=== PATIENT | female | born 1955 | race Caucasian/White ===

== ENCOUNTER 2024-02-02 14:40 | Observation (INO) | payer MEDICARE, OTHER, SELFPAY ==
[2024-02-02] VITALS (7 sets, daily range): BP systolic 124–154; BP diastolic 67–102; PULSE 103–113; RESP 13–23; TEMP 37–37.3; O2SAT 91–95; BMI 37.4; BMI 37.5
--- NOTE | 2024-02-02 15:07 | EXP.UTC ---
Discharge Plan Disposition Patient Disposition: Still a Patient Prescriptions Prescriptions: No Action ropinirole 2 mg tablet 2 mg PO HS Patient Comments: TAKE 1 TABLET BY MOUTH EVERYDAY AT BEDTIME levothyroxine 150 mcg tablet 150 mcg PO AM Patient Comments: TAKE 1 TABLET BY MOUTH EVERY DAY IN THE MORNING ON EMPTY STOMACH omeprazole 20 mg capsule,delayed release(DR/EC) 20 mg PO DAILY Patient Comments: TAKE 1 CAPSULE BY MOUTH EVERY DAY lisinopril-hydrochlorothiazide 20-25 mg tablet 1 tab PO BID Patient Comments: TAKE 1 TABLET TWICE A DAY BY ORAL ROUTE FOR 90 DAYS. rosuvastatin 10 mg tablet 10 mg PO HS Patient Comments: TAKE 1 TABLET BY MOUTH EVERYDAY AT BEDTIME Referrals Follow up/Referrals: Nino Kearns APRN [Primary Care Provider] - See instructions Instructions Patient Instructions: DI for Acute Abdominal Pain Discharge [place] Emir Dykes [facility] [place] <Chelle Villalobos APRN - Last Filed: 02/02/24 17:14> General Chief complaint: Abdominal Pain Stated complaint: lower abd pain Mode of Arrival: Ambulatory Source of Information: Patient Limitations: No Limitations Time Seen by Provider: 02/02/24 15:08 Description of Symptoms (Recalled from Triage Doc. by RN): PATIENT C/O LEFT-SIDED ABDOMINAL PAIN THAT STARTED EARLIER TODAY AND HAS PROGRESSIVELY GOTTEN WORSE. PATIENT STATES PAIN DOES NOT RADIATE, DENIES NAUSEA, VOMITING AND DIARRHEA. PATIENT REPORTS A HISTORY OF PANCREATITIS AND LEUKEMIA HEENT Symptoms (Recalled from RN notes): No Resp Symptoms (Recalled from RN notes): No Skin Symptoms (Recalled from RN notes): No MS Symptoms (Recalled from RN notes): No Functional Status (Recalled from RN notes): WNL History of Present Illness Provider Complaint: Patient states that earlier today she started with left side abdominal pain that has got worse States pain is worst she has ever had States that she has had pain in her left side before and it went away but this time it has got worse States she has hx of pancreatitis and recent dx of Leukemia that they recommended she take Chemo for but she refused treatment States this evening the pain has become unbearable so she came in to get checked Denies N/V/D denies, denies radiation of pain and denies recent fever States last BM this am and normal Related Data Home Medications Medication Instructions Recorded Confirmed levothyroxine 150 mcg tablet 150 mcg PO AM 02/02/24 02/02/24 lisinopril 20 1 tab PO BID 02/02/24 02/02/24 mg-hydrochlorothiazide 25 mg tablet omeprazole 20 mg capsule,delayed 20 mg PO DAILY 02/02/24 02/02/24 release ropinirole 2 mg tablet 2 mg PO HS 02/02/24 02/02/24 rosuvastatin 10 mg tablet 10 mg PO HS 02/02/24 02/02/24 Allergies Allergy/AdvReac Type Severity Reaction Status Date / Time No Known Allergies Allergy Verified 02/02/24 15:07 Worker's Comp Is this a Worker's Comp case?: No PFSH <Chelle Villalobos APRN - Last Filed: 02/02/24 17:14> PFSH Disclaimer: The information contained in this section may have been updated after the patient was seen, as this information can be updated by other users. Medical History (Updated 02/02/24 @ 15:08 by Asiya Becker RN) Leukemia Pancreatitis Social History Smoking Status: Former smoker alcohol intake: never current occupational status: other Travel in the last 8 weeks: None <Chelle Villalobos APRN - Last Filed: 02/02/24 17:14> ROS Obtained: Yes All systems reviewed & no additional complaints except as documented and Yes Systems reviewed as appropriate & no additional complaints except as documented Constitutional Constitutional: Reports system reviewed and no additional complaints, except as documented and Reports as per HPI Cardiovascular Cardiovascular: Reports system reviewed and no additional complaints, except as documented, Reports as per HPI and Denies chest pain Respiratory Respiratory: Reports system reviewed and no additional complaints, except as documented and Reports as per HPI Gastrointestinal Gastrointestingal: Reports system reviewed and no additional complaints, except as documented, as per HPI and abdominal pain (left side pain ) Physical Exam <Chelle Villalobos APRN - Last Filed: 02/02/24 17:14> General General appearance: alert Comment: Patient uncomfortable moaning and moving around in wheelchair Respiratory Respiratory exam: Present normal lung sounds bilaterally; Absent respiratory distress or wheezes Cardiovascular Cardiovascular exam: Present tachycardia Abdominal Exam Abdominal exam: Present tenderness (patient reports pain/tenderness in left side and left upper abdomen just under breast area) and normal bowel sounds Neurological Exam Neurological exam: Present alert and oriented X3 Medical Decision Making <Chelle Villalobos APRN - Last Filed: 02/02/24 17:14> [place] Inquiry Pt receiving controlled substance: No [place] was queried for this patient: No Vital Signs: 02/02/24 15:00 Temperature 98.6 F Temperature Source Oral Pulse Rate [Right Brachial] 113 H Respiratory Rate 23 Blood Pressure [Right Arm] 154/67 H Blood Pressure Mean [Right Arm] 96 Blood Pressure Source [Right Arm] Automatic Cuff Blood Pressure Position [Right Arm] Sitting 02 Sat by Pulse Oximetry 95 Oxygen Delivery Method Room Air Lab Data 02/02/24 15:21 02/02/24 15:21 Medical Decision Narrative: Patient uncomfortable moving around in wheelchair and moaning holding left side of abdomen complaining of pain Patient reports hx of pancreatitis and recent dx of Leukemia in which she has declined treatment for, Discussed transfer to the ED for furhter work up and evaluation and patient agreed Called ED and patient was moved to room 10 <Emir Dykes MD - Last Filed: 02/02/24 16:38> Vital Signs: 02/02/24 15:00 Temperature 98.6 F Temperature Source Oral Pulse Rate [Right Brachial] 113 H Respiratory Rate 23 Blood Pressure [Right Arm] 154/67 H Blood Pressure Mean [Right Arm] 96 Blood Pressure Source [Right Arm] Automatic Cuff Blood Pressure Position [Right Arm] Sitting 02 Sat by Pulse Oximetry 95 Oxygen Delivery Method Room Air ECG Data Tracing #1: Independently interpreted by me, rate is 108, rhythm is regular, axis is normal, no ST elevation in anatomical contiguous leads. QTc 399.
--- NOTE | 2024-02-02 15:11 | PC.NURSE ---
Pt brought over from [facility]
--- NOTE | 2024-02-02 15:12 | PC.NURSE ---
PATIENT SENT TO ER PER Laury WILLIS APRN FOR FURTHER EVALUATION. REPORT GIVEN TO DR. HILLMAN BY Laury WILLIS APRN AND Sy VELAZQUEZ RN BY Hailey BLACKBURN RN. PATIENT TRANSPORTED TO ER VIA WHEELCHAIR WITH [facility] STAFF ASSIST
--- NOTE | 2024-02-02 15:13 | HMH.EDGENADL ---
Discharge Plan Disposition Patient Disposition: Admitted Condition: Serious Clinical Impressions Clinical Impression: Prolymphocytic leukemia of T-cell, Acute hypoxemic respiratory failure Discharge ED Provider: Emir Dykes General Adult HPI <JEAN MARIE Lane - Last Filed: 02/02/24 21:31> General Chief complaint: Abdominal Pain Stated complaint: lower abd pain Time Seen by Provider: 02/02/24 15:08 Mode of Arrival: Ambulatory Source of Information: Patient Limitations: No Limitations Description of Symptoms (Recalled from ER Triage Doc. by RN): PATIENT C/O LEFT-SIDED ABDOMINAL PAIN THAT STARTED EARLIER TODAY AND HAS PROGRESSIVELY GOTTEN WORSE. PATIENT STATES PAIN DOES NOT RADIATE, DENIES NAUSEA, VOMITING AND DIARRHEA. PATIENT REPORTS A HISTORY OF PANCREATITIS AND LEUKEMIA History of Present Illness HPI narrative: Patient is here for evaluation of acute onset left upper quadrant abdominal pain. Patient reports around noon today that she began experiencing exquisite left upper quadrant abdominal pain. She denies any nausea vomiting diarrhea chest pain reports shortness of breath due to the pain but no difficulty breathing fever chills hemoptysis hematochezia melena hematemesis nausea vomiting or diarrhea. Patient was diagnosed with T-cell PLL in March of last year and was sent to see oncology in [place]. Patient declined any treatment. But she also is not currently on hospice. Related Data Home Medications Medication Instructions Recorded Confirmed levothyroxine 150 mcg tablet 150 mcg PO AM 02/02/24 02/02/24 lisinopril 20 1 tab PO BID 02/02/24 02/02/24 mg-hydrochlorothiazide 25 mg tablet omeprazole 20 mg capsule,delayed 20 mg PO DAILY 02/02/24 02/02/24 release ropinirole 2 mg tablet 1 mg PO HS 02/02/24 02/02/24 rosuvastatin 10 mg tablet 10 mg PO HS 02/02/24 02/02/24 Allergies Allergy/AdvReac Type Severity Reaction Status Date / Time No Known Allergies Allergy Verified 02/02/24 15:07 PFSH <JEAN MARIE Lane - Last Filed: 02/02/24 21:31> [facility] Disclaimer: The information contained in this section may have been updated after the patient was seen, as this information can be updated by other users. Medical History Leukemia Pancreatitis Social History (Updated 02/02/24 @ 22:55 by Lourdes Smallwood RN) Smoking Status: Former smoker alcohol intake: never current occupational status: other Travel in the last 8 weeks: None <JEAN MARIE Lane - Last Filed: 02/02/24 21:31> ROS Obtained: Yes Systems reviewed as appropriate & no additional complaints except as documented Physical Exam <JEAN MARIE Lane - Last Filed: 02/02/24 21:31> General General appearance: alert and in no apparent distress Head Head exam: atraumatic and normal inspection Eye Eye exam: Present normal appearance ENT ENT exam: Present normal exam and normal oropharynx Neck Neck exam: Present normal inspection and full ROM Chest Chest inspection: Present normal inspection and symmetric chest wall rise Respiratory Respiratory exam: Present normal lung sounds bilaterally Cardiovascular Cardiovascular exam: Present normal rhythm, tachycardia, normal heart sounds, +S1 and +S2 Abdominal Exam Abdominal exam: Present soft (Obese), tenderness and normal bowel sounds; Absent guarding or rebound Abdominal tenderness: Present LUQ Extremities Exam Extremities exam: Present normal inspection and full ROM Back Exam Back exam: Present normal inspection and full ROM Neurological Exam Neurological exam: Present alert and oriented X3 Psychiatric Psychiatric exam: Present normal affect and normal mood Skin Skin exam: Present warm, dry and normal color Lymphatic Lymphatic Findings: no adenopathy Medical Decision Making <JEAN MARIE Lane - Last Filed: 02/02/24 21:31> Medical Records Medical records reviewed: Yes I reviewed the patient's medical records. [place] Inquiry Pt receiving controlled substance: No Vital Signs: 02/02/24 15:00 02/02/24 15:13 02/02/24 15:30 Temperature 98.6 F 99.0 F Temperature Source Oral Oral Pulse Rate 111 H Pulse Rate [Right Brachial] 113 H 111 H Respiratory Rate 23 13 Blood Pressure 154/102 H Blood Pressure [Right Arm] 154/67 H 150/96 H Blood Pressure Mean [Right Arm] 96 114 Blood Pressure Source [Right Arm] Automatic Cuff Blood Pressure Position [Right Arm] Sitting 02 Sat by Pulse Oximetry 95 93 L 95 Oxygen Delivery Method Room Air Room Air Room Air Oxygen Flow Rate (LPM) 02/02/24 16:29 02/02/24 17:00 02/02/24 22:03 Temperature 99.1 F Temperature Source Oral Pulse Rate 105 H 103 H 107 H Pulse Rate [Right Brachial] Respiratory Rate 17 Blood Pressure 153/81 H 144/83 H 143/95 H Blood Pressure [Right Arm] Blood Pressure Mean [Right Arm] Blood Pressure Source [Right Arm] Blood Pressure Position [Right Arm] 02 Sat by Pulse Oximetry 91 L 92 L Oxygen Delivery Method Room Air Nasal Cannula Oxygen Flow Rate (LPM) 3 Lab Data Lab results reviewed: Yes I reviewed the patient's lab results. Lab Results 02/02/24 15:21: WBC 444.4 H*, RBC 2.92 L, Hgb 9.6 L, Hct 31.5 L, MCV 108.2 H, MCH 32.8 H, MCHC 30.3 L, RDW 19.2 H, Plt Count 97 L, MPV 8.6, Neut % (Auto) 5.4 L, Lymph % (Auto) 92.5 H, Starr % (Auto) 2.1, Eos % (Auto) 0.0 L, Baso % (Auto) 29.1 H, Neut # (Auto) 23.9 H, Lymph # (Auto) 411.3 H, Starr # (Auto) 9.1 H, Eos # (Auto) 0.1, Baso # (Auto) 129.3 H, Total Counted 100, Neutrophils % (Manual) 4 L, Band Neutrophils % 1.0, Lymphocytes % (Manual) 74 H, Atypical Lymphs % 14.0, Monocytes % (Manual) 1 L, Basophils % (Manual) 1.0, Blast Cells % 5.0, Differential Comment Comment, Platelet Estimate Moderate decrease, Hypochromasia 1+, Macrocytosis 2+, PT 11.7, INR 1.09, Sodium 139, Potassium 4.2, Chloride 103, Carbon Dioxide 28, Anion Gap 12.2, BUN 13, Creatinine 1.10 H, Estimated Creat Clear 80, Estimated GFR 50 L, Est GFR ( Amer) 60, Glucose 108 H, Lactate 1.0, Uric Acid 8.8 H, Calcium 9.3, Magnesium 1.8, Total Bilirubin 1.1, AST 80 H, ALT 28, Alkaline Phosphatase 142 H, Lactate Dehydrogenase 2519 H, Total Protein 8.0, Albumin 4.6, Globulin 3.4 H, Albumin/Globulin Ratio 1.4, Lipase 155 02/02/24 18:19: Urine Color Yellow, Urine Appearance Clear, Urine pH 5.0, Ur Specific [place] 1.020, Urine Protein Trace, Urine Glucose (UA) Negative, Urine Ketones Negative, Urine Blood 1+, Urine Nitrate Negative, Urine Bilirubin Negative, Urine Urobilinogen 0.2, Ur Leukocyte Esterase Negative, Urine RBC 5-10, Urine WBC Occasional, Ur Squamous Epith Cells 3-5, Urine Bacteria None 02/02/24 15:21 02/02/24 15:21 Orders (Tests/Meds): ED MEDICATIONS Generic Name Dose Route Start Last Admin Trade Name Freq PRN Reason Stop Dose Admin Hydrocodone Bitart/Acetaminophen 1 tab 02/02/24 22:17 Hydrocodone/Apap 5/325 Mg Tablet PO 03/03/24 22:16 Q4HP PRN pain Hydromorphone HCl 0.5 mg 02/02/24 22:17 Hydromorphone 2mg/Ml Syringe IV 03/03/24 22:16 Q2HP PRN Severe Pain (7-10) Lactated Ringer's 1,000 mls @ 100 mls/hr 02/02/24 22:30 02/02/24 22:42 Lactated Ringer's 1000 Ml Bag IV 03/03/24 22:29 100 mls/hr .Q10H ALLISON Administration Prochlorperazine Edisylate 5 mg 02/02/24 22:17 02/02/24 22:42 Prochlorperazine 10mg/2ml Vial IV 03/03/24 22:16 5 mg Q4HP PRN Administration Nausea And Vomiting Sodium Chloride 10 ml 02/02/24 22:19 Sodium Chloride 0.9% 10ml Flush Syringe IV 03/03/24 22:18 NEEDED PRN Maintain IV Site Discontinued Medications Generic Name Dose Route Start Last Admin Trade Name Freq PRN Reason Stop Dose Admin Acetaminophen 1,000 mg 02/02/24 15:28 02/02/24 15:52 Acetaminophen 1,000mg/100ml Vial IV 02/02/24 15:29 1,000 mg ONCE ONE Administration Hydromorphone HCl 0.5 mg 02/02/24 15:28 02/02/24 15:52 Hydromorphone 2mg/Ml Syringe IV 02/02/24 15:29 0.5 mg ONCE ONE Administration Hydromorphone HCl 0.5 mg 05/12/24 20:55 02/02/24 21:03 Hydromorphone 2mg/Ml Syringe IV 02/02/24 20:56 0.5 mg ONCE ONE Administration Lactated Ringer's 1,000 mls @ 999 mls/hr 02/02/24 15:28 02/02/24 15:52 Lactated Ringer's 1000 Ml Bag IV 02/02/24 16:28 999 mls/hr .Q1H1M ONE Administration Lactated Ringer's 1,000 mls @ 999 mls/hr 02/02/24 17:10 02/02/24 17:16 Lactated Ringer's 1000 Ml Bag IV 02/02/24 18:10 999 mls/hr .Q1H1M ONE Administration Lactated Ringer's 1,000 mls @ 999 mls/hr 02/02/24 18:17 02/02/24 18:22 Lactated Ringer's 1000 Ml Bag IV 02/02/24 19:17 999 mls/hr .Q1H1M ONE Administration Iopamidol 70 ml 02/02/24 16:12 02/02/24 16:14 Iopamidol-370 (76%);100ml Bottle IV 02/02/24 16:13 70 ml ONCE ONE Administration Ketorolac Tromethamine 15 mg 02/02/24 15:28 02/02/24 15:52 Ketorolac 30mg/Ml Vial IV 02/02/24 15:29 15 mg ONCE ONE Administration Ondansetron HCl 4 mg 02/02/24 16:29 02/02/24 16:35 Ondansetron 4mg/2ml Vial IV 02/02/24 16:30 4 mg ONCE ONE Administration Oxycodone HCl 5 mg 02/02/24 19:12 02/02/24 19:13 Oxycodone 5mg Immediate Release Tablet PO 02/02/24 19:13 5 mg ONCE ONE Administration Promethazine HCl 25 mg 02/02/24 18:37 02/02/24 18:54 Promethazine Hcl 25mg/Ml 1ml Vial IV 02/02/24 18:38 25 mg ONCE ONE Administration Ropinirole HCl 2 mg 02/02/24 18:56 02/02/24 19:13 Ropinirole 1mg Tablet PO 02/02/24 18:57 2 mg ONCE ONE Administration Sodium Chloride 10 ml 02/02/24 16:12 02/02/24 16:14 Sodium Chloride 0.9% 10ml Syr (Rad Only) IV 02/02/24 16:13 10 ml ONCE ONE Administration Sodium Chloride 50 ml 02/02/24 16:12 02/02/24 16:14 0.9 % Sodium Chloride 50 Ml Vial IV 02/02/24 16:13 50 ml ONCE ONE Administration Sodium Chloride 25 ml 02/02/24 18:37 02/02/24 18:49 Sodium Chloride 0.9% 25ml Bag IV 02/02/24 18:38 25 ml ONCE ONE Administration ORDERS Category Date Time Status CT angio abdomen pelvis Stat Cat Scan 02/02/24 15:[address] angio chest PE protocol Stat Cat Scan 02/02/24 15:41 Completed CBC w/Auto Diff [Complete Blood Count Auto Diff] Stat Lab 02/02/24 15:21 Completed CMP [Comprehensive Metabolic Panel] Stat Lab 02/02/24 15:21 Completed INR [Prothrombin Time INR] Stat Lab 02/02/24 15:21 Completed LDH [Lactate Dehydrogenase] Stat Lab 02/02/24 15:21 Completed Lactic Acid Stat Lab 02/02/24 15:21 Completed Lipase Stat Lab 02/02/24 15:21 Completed Magnesium Stat Lab 02/02/24 15:21 Completed UA [Urinalysis and Microscopic] Stat Lab 02/02/24 18:19 Completed Uric Acid Stat Lab 02/02/24 15:21 Completed Medical Decision Narrative: In summary patient is a 68-year-old female who presents to the emergency department for evaluation of acute onset left upper quadrant abdominal pain. Patient is normotensive tachycardic but otherwise hemodynamically stable upon arrival, afebrile. Physical exam is remarkable for tenderness to palpation in the left upper quadrant extending around into the left axilla. Breath sounds are equal bilaterally without adventitious sounds. Bowel sounds are normal active.. Differential diagnosis includes splenic congestion versus kidney stone versus pyelonephritis versus pancreatitis versus bowel obstruction versus worsening T-cell PLL etc. Initial workup will be conducted with hematologic labs CT scan of the chest abdomen pelvis urinalysis twelve-lead EKG. Initial interventions include crystalloid bolus Toradol Tylenol and Dilaudid. Initial workup reviewed by me shows as expected significant leukocytosis with a white count of 444.4 hemoglobin of 9.6 hematocrit of 31.5 and mild thrombocytopenia, LDH of 2519 and a lipase of 155. My informal interpretation of her CT scan of the chest abdomen pelvis shows significant lymphadenopathy in the chest and abdomen along with significant splenomegaly with fluid noted and the left paracolic gutter around the spleen and anasarca without evidence of any other acute pathology.. Upon repeat evaluation we were able to alleviate some of the patient's discomfort. Given this Dr. Dykes had a 30-minute interactive discussion with the patient and her family members at the bedside regarding the results and possible options. She has elected to pursue hospice care. We have subsequently reached out to [facility] navigators at 1838. However patient has now developed a new oxygen requirement and thus we have contacted hospital medicine regarding patient management. Patient will be admitted for further coordination of care. <Emir Dykes MD - Last Filed: 02/02/24 23:48> Vital Signs: 02/02/24 15:00 02/02/24 15:13 02/02/24 15:30 Temperature 98.6 F 99.0 F Temperature Source Oral Oral Pulse Rate 111 H Pulse Rate [Right Brachial] 113 H 111 H Respiratory Rate 23 13 Blood Pressure 154/102 H Blood Pressure [Right Arm] 154/67 H 150/96 H Blood Pressure Mean [Right Arm] 96 114 Blood Pressure Source [Right Arm] Automatic Cuff Blood Pressure Position [Right Arm] Sitting 02 Sat by Pulse Oximetry 95 93 L 95 Oxygen Delivery Method Room Air Room Air Room Air Oxygen Flow Rate (LPM) 02/02/24 16:29 02/02/24 17:00 02/02/24 22:03 Temperature 99.1 F Temperature Source Oral Pulse Rate 105 H 103 H 107 H Pulse Rate [Right Brachial] Respiratory Rate 17 Blood Pressure 153/81 H 144/83 H 143/95 H Blood Pressure [Right Arm] Blood Pressure Mean [Right Arm] Blood Pressure Source [Right Arm] Blood Pressure Position [Right Arm] 02 Sat by Pulse Oximetry 91 L 92 L Oxygen Delivery Method Room Air Nasal Cannula Oxygen Flow Rate (LPM) 3 Lab Data Lab Results 02/02/24 15:21: WBC 444.4 H*, RBC 2.92 L, Hgb 9.6 L, Hct 31.5 L, MCV 108.2 H, MCH 32.8 H, MCHC 30.3 L, RDW 19.2 H, Plt Count 97 L, MPV 8.6, Neut % (Auto) 5.4 L, Lymph % (Auto) 92.5 H, Starr % (Auto) 2.1, Eos % (Auto) 0.0 L, Baso % (Auto) 29.1 H, Neut # (Auto) 23.9 H, Lymph # (Auto) 411.3 H, Starr # (Auto) 9.1 H, Eos # (Auto) 0.1, Baso # (Auto) 129.3 H, Total Counted 100, Neutrophils % (Manual) 4 L, Band Neutrophils % 1.0, Lymphocytes % (Manual) 74 H, Atypical Lymphs % 14.0, Monocytes % (Manual) 1 L, Basophils % (Manual) 1.0, Blast Cells % 5.0, Differential Comment Comment, Platelet Estimate Moderate decrease, Hypochromasia 1+, Macrocytosis 2+, PT 11.7, INR 1.09, Sodium 139, Potassium 4.2, Chloride 103, Carbon Dioxide 28, Anion Gap 12.2, BUN 13, Creatinine 1.10 H, Estimated Creat Clear 80, Estimated GFR 50 L, Est GFR ( Amer) 60, Glucose 108 H, Lactate 1.0, Uric Acid 8.8 H, Calcium 9.3, Magnesium 1.8, Total Bilirubin 1.1, AST 80 H, ALT 28, Alkaline Phosphatase 142 H, Lactate Dehydrogenase 2519 H, Total Protein 8.0, Albumin 4.6, Globulin 3.4 H, Albumin/Globulin Ratio 1.4, Lipase 155 02/02/24 18:19: Urine Color Yellow, Urine Appearance Clear, Urine pH 5.0, Ur Specific [place] 1.020, Urine Protein Trace, Urine Glucose (UA) Negative, Urine Ketones Negative, Urine Blood 1+, Urine Nitrate Negative, Urine Bilirubin Negative, Urine Urobilinogen 0.2, Ur Leukocyte Esterase Negative, Urine RBC 5-10, Urine WBC Occasional, Ur Squamous Epith Cells 3-5, Urine Bacteria None Orders (Tests/Meds): ED MEDICATIONS Generic Name Dose Route Start Last Admin Trade Name Freq PRN Reason Stop Dose Admin Hydrocodone Bitart/Acetaminophen 1 tab 02/02/24 22:17 Hydrocodone/Apap 5/325 Mg Tablet PO 03/03/24 22:16 Q4HP PRN pain Hydromorphone HCl 0.5 mg 02/02/24 22:17 Hydromorphone 2mg/Ml Syringe IV 03/03/24 22:16 Q2HP PRN Severe Pain (7-10) Lactated Ringer's 1,000 mls @ 100 mls/hr 02/02/24 22:30 02/02/24 22:42 Lactated Ringer's 1000 Ml Bag IV 03/03/24 22:29 100 mls/hr .Q10H ALLISON Administration Prochlorperazine Edisylate 5 mg 02/02/24 22:17 02/02/24 22:42 Prochlorperazine 10mg/2ml Vial IV 03/03/24 22:16 5 mg Q4HP PRN Administration Nausea And Vomiting Sodium Chloride 10 ml 02/02/24 22:19 Sodium Chloride 0.9% 10ml Flush Syringe IV 03/03/24 22:18 NEEDED PRN Maintain IV Site Discontinued Medications Generic Name Dose Route Start Last Admin Trade Name Freq PRN Reason Stop Dose Admin Acetaminophen 1,000 mg 02/02/24 15:28 02/02/24 15:52 Acetaminophen 1,000mg/100ml Vial IV 02/02/24 15:29 1,000 mg ONCE ONE Administration Hydromorphone HCl 0.5 mg 02/02/24 15:28 02/02/24 15:52 Hydromorphone 2mg/Ml Syringe IV 02/02/24 15:29 0.5 mg ONCE ONE Administration Hydromorphone HCl 0.5 mg 02/02/24 20:55 02/02/24 21:03 Hydromorphone 2mg/Ml Syringe IV 02/02/24 20:56 0.5 mg ONCE ONE Administration Lactated Ringer's 1,000 mls @ 999 mls/hr 02/02/24 15:28 02/02/24 15:52 Lactated Ringer's 1000 Ml Bag IV 02/02/24 16:28 999 mls/hr .Q1H1M ONE Administration Lactated Ringer's 1,000 mls @ 999 mls/hr 02/02/24 17:10 02/02/24 17:16 Lactated Ringer's 1000 Ml Bag IV 02/02/24 18:10 999 mls/hr .Q1H1M ONE Administration Lactated Ringer's 1,000 mls @ 999 mls/hr 02/02/24 18:17 02/02/24 18:22 Lactated Ringer's 1000 Ml Bag IV 02/02/24 19:17 999 mls/hr .Q1H1M ONE Administration Iopamidol 70 ml 02/02/24 16:12 02/02/24 16:14 Iopamidol-370 (76%);100ml Bottle IV 02/02/24 16:13 70 ml ONCE ONE Administration Ketorolac Tromethamine 15 mg 02/02/24 15:28 02/02/24 15:52 Ketorolac 30mg/Ml Vial IV 02/02/24 15:29 15 mg ONCE ONE Administration Ondansetron HCl 4 mg 02/02/24 16:29 02/02/24 16:35 Ondansetron 4mg/2ml Vial IV 02/02/24 16:30 4 mg ONCE ONE Administration Oxycodone HCl 5 mg 02/02/24 19:12 02/02/24 19:13 Oxycodone 5mg Immediate Release Tablet PO 02/02/24 19:13 5 mg ONCE ONE Administration Promethazine HCl 25 mg 02/02/24 18:37 02/02/24 18:54 Promethazine Hcl 25mg/Ml 1ml Vial IV 02/02/24 18:38 25 mg ONCE ONE Administration Ropinirole HCl 2 mg 02/02/24 18:56 02/02/24 19:13 Ropinirole 1mg Tablet PO 02/02/24 18:57 2 mg ONCE ONE Administration Sodium Chloride 10 ml 02/02/24 16:12 02/02/24 16:14 Sodium Chloride 0.9% 10ml Syr (Rad Only) IV 02/02/24 16:13 10 ml ONCE ONE Administration Sodium Chloride 50 ml 02/02/24 16:12 02/02/24 16:14 0.9 % Sodium Chloride 50 Ml Vial IV 02/02/24 16:13 50 ml ONCE ONE Administration Sodium Chloride 25 ml 02/02/24 18:37 02/02/24 18:49 Sodium Chloride 0.9% 25ml Bag IV 02/02/24 18:38 25 ml ONCE ONE Administration ORDERS Category Date Time Status CT angio abdomen pelvis Stat Cat Scan 02/02/24 15:[address] angio chest PE protocol Stat Cat Scan 02/02/24 15:41 Completed CBC w/Auto Diff [Complete Blood Count Auto Diff] Stat Lab 02/02/24 15:21 Completed CMP [Comprehensive Metabolic Panel] Stat Lab 02/02/24 15:21 Completed INR [Prothrombin Time INR] Stat Lab 02/02/24 15:21 Completed LDH [Lactate Dehydrogenase] Stat Lab 02/02/24 15:21 Completed Lactic Acid Stat Lab 02/02/24 15:21 Completed Lipase Stat Lab 02/02/24 15:21 Completed Magnesium Stat Lab 02/02/24 15:21 Completed UA [Urinalysis and Microscopic] Stat Lab 02/02/24 18:19 Completed Uric Acid Stat Lab 02/02/24 15:21 Completed Medical Decision Narrative: In summary patient is a 68-year-old female who presents to the emergency department for evaluation of acute onset left upper quadrant abdominal pain. Patient is normotensive tachycardic but otherwise hemodynamically stable upon arrival, afebrile. Physical exam is remarkable for tenderness to palpation in the left upper quadrant extending around into the left axilla. Breath sounds are equal bilaterally without adventitious sounds. Bowel sounds are normal active.. Differential diagnosis includes splenic congestion versus kidney stone versus pyelonephritis versus pancreatitis versus bowel obstruction versus worsening T-cell PLL etc. Initial workup will be conducted with hematologic labs CT scan of the chest abdomen pelvis urinalysis twelve-lead EKG. Initial interventions include crystalloid bolus Toradol Tylenol and Dilaudid. Initial workup reviewed by me shows as expected significant leukocytosis with a white count of 444.4 hemoglobin of 9.6 hematocrit of 31.5 and mild thrombocytopenia, LDH of 2519 and a lipase of 155. My informal interpretation of her CT scan of the chest abdomen pelvis shows significant lymphadenopathy in the chest and abdomen along with significant splenomegaly with fluid noted and the left paracolic gutter around the spleen and anasarca without evidence of any other acute pathology.. Upon repeat evaluation we were able to alleviate some of the patient's discomfort. Given this Dr. Dykes had a 30-minute interactive discussion with the patient and her family members at the bedside regarding the results and possible options. She has elected to pursue hospice care. We have subsequently reached out to [facility] navigators at 1838. However patient has now developed a new oxygen requirement and thus we have contacted hospital medicine regarding patient management. Patient will be admitted for further coordination of care. I was consulted by the MANUEL, and we discussed the complexity of the problems being addressed. I approved the treatment and management plan for this patient's care in the emergency department, thus performing a substantive portion of the medical decision making. Patient is a 68-year-old female with past medical history of untreated leukemia by choice who presented to the emergency department for left upper quadrant abdominal pain. Her workup was ultimately remarkable for hyperleukocytosis and splenomegaly in the setting of known malignancy. Prolonged discussion was had at bedside multiple times and patient was given 3 options, 1 of which was transitioning to hospice care with symptom control, 1 was calling to see about the utility of leukapheresis as a palliative measure, and finally transferring to tertiary care center for treatment options. Patient and family at bedside have prolonged discussion and ultimately wish to transition to hospice care at this time. [facility] navigators were contacted to evaluate the patient already and are in the process of coordinating care for her however will be unable to do that tonight from the ED therefore for symptomatic control and coordination of care the case was discussed with hospital medicine who admit the patient their service for continued evaluation at this time. Emir Dykes MD Critical Care <JEAN MARIE Lane - Last Filed: 02/02/24 21:31> Critical Care Time Critical Care Time: No
--- NOTE | 2024-02-02 15:41 | CT_ITS ---
PROCEDURE INFORMATION: Exam: CTA Abdomen and Pelvis With Contrast Exam date and time: 02/02/2024 3:55 PM Age: 68 years old Clinical indication: Abdominal pain; Generalized; Additional info: Acute abdominal pain, untreated pml TECHNIQUE: Imaging protocol: Computed tomographic angiography of the abdomen and pelvis with contrast. Exam focused on the arteries. 3D rendering (Not supervised by radiologist): MIP and/or 3D reconstructed images were created by the technologist. Radiation optimization: All CT scans at this facility use at least one of these dose optimization techniques: automated exposure control; mA and/or kV adjustment per patient size (includes targeted exams where dose is matched to clinical indication); or iterative reconstruction. Contrast material: ISOVUE 370; Contrast volume: 70 ml; Contrast route: INTRAVENOUS (IV); COMPARISON: CT ANGIO CHEST PE PROTOCOL 02/02/2024 3:55 PM FINDINGS: Aorta: No aortic aneurysm. No aortic dissection. [id number] atherosclerotic changes of the abdominal aorta and iliacs. Celiac trunk and mesenteric arteries: No occlusion or significant stenosis. Renal arteries: No occlusion or significant stenosis. Right iliac arteries: No occlusion or significant stenosis. Left iliac arteries: No occlusion or significant stenosis. Liver: No mass. Gallbladder and bile ducts: Unremarkable. No calcified stones. No ductal dilation. Pancreas: Unremarkable. No mass. No ductal dilation. Spleen: Moderate splenomegaly measuring 18.7 cm. Spleen otherwise unremarkable. Adrenal glands: Unremarkable. No mass. Kidneys and ureters: Unremarkable. No solid mass. No hydronephrosis. Stomach and bowel: Multiple diverticula in the sigmoid colon. Colon otherwise unremarkable. GI tract structures otherwise unremarkable with no evident wall thickening allowing for incomplete distention. Appendix: Appendix is normal. No evidence of appendicitis. Intraperitoneal space: Unremarkable. No free air. No significant fluid collection. Lymph nodes: Mildly to moderately enlarged gastrohepatic region nodes measuring up to 20 mm. Enlarge peripancreatic nodes around the pancreatic head and tail measuring up to 20 x 38 mm and portacaval node measuring 18 x 42 mm. Mild left para-aortic adenopathy measuring up to 12 mm extending from the upper abdomen to the bifurcation level. Urinary bladder: Unremarkable. No mass. Reproductive: Unremarkable as visualized. Bones/joints: No acute fracture. Soft tissues: Mild body wall edema compatible with anasarca. Mild Magalys splenic edema with extension of edema along the left pararenal fascia and left paracolic gutter. IMPRESSION: 1. Splenomegaly and associated lymphadenopathy consistent with history of PML. 2. Anasarca. 3. Mild perisplenic and left perirenal and paracolic edema or fluid that may be related to splenomegaly or anasarca. 4. No other definite acute abnormalities.
--- NOTE | 2024-02-02 15:41 | CT_ITS ---
PROCEDURE INFORMATION: Exam: CTA Chest With Contrast Exam date and time: 02/02/2024 3:55 PM Age: 68 years old Clinical indication: Pain; Left-sided; Additional info: Left upper quadrant abdominal pain, untreated pml TECHNIQUE: Imaging protocol: Computed tomographic angiography of the chest with contrast. Exam focused on the arteries. 3D rendering (Not supervised by radiologist): MIP and/or 3D reconstructed images were created by the technologist. Radiation optimization: All CT scans at this facility use at least one of these dose optimization techniques: automated exposure control; mA and/or kV adjustment per patient size (includes targeted exams where dose is matched to clinical indication); or iterative reconstruction. Contrast material: ISOVUE 370; Contrast volume: 70 ml; Contrast route: INTRAVENOUS (IV); COMPARISON: CT ANGIO ABDOMEN PELVIS 02/02/2024 3:55 PM FINDINGS: Pulmonary arteries: Normal. No pulmonary emboli. Aorta: Unremarkable. No aortic aneurysm. No aortic dissection. Thyroid: A 2.5 cm low-density lesion in the right lobe of the thyroid. Advise nonemergent ultrasound of thyroid. Lungs: Unremarkable. No consolidation. No masses. Pleural spaces: Unremarkable. No pneumothorax. No pleural effusion. Heart: Unremarkable. No cardiomegaly. No pericardial effusion. Lymph nodes: Mild nonspecific mediastinal lymphadenopathy including the high right paratracheal region measuring up to 11 mm and subcarinal region measuring up to 14 mm. Mildly enlarged right cardiophrenic angle lymph node measuring 11 mm. Bones/joints: Unremarkable. No acute fracture. Soft tissues: Unremarkable. IMPRESSION: 1. No evident PE. No other acute findings. 2. A 2.5 cm low-density lesion in the right lobe of the thyroid. Advise nonemergent ultrasound of thyroid. 3. Mild mediastinal lymphadenopathy may be related to patient's PML.
[2024-02-02 15:47] LABS: INR 1.09 (0.9-1.1); Lipase 155 U/L (23-300); Magnesium 1.8 mg/dl (1.6-2.3); Prothrombin Time 11.7 seconds (10.1-12.5); Uric Acid 8.8 mg/dl (2.5-6.2)
--- NOTE | 2024-02-02 15:47 | PC.NURSE ---
Dr. Dykes asked for pt to be taken to ct scan and forego waiting for labs. Radiology notified of this.
[2024-02-02 15:48] LABS: Alanine Aminotransferase 28 U/L (12-78); Albumin Level 4.6 g/dl (3.5-5.0); Albumin/Globulin Ratio 1.4 (1.1-1.8); Alkaline Phosphatase 142 U/L (38-126); Anion Gap 12.2 mEq/L (5-15); Aspartate Amino Transferase 80 U/L (14-36); Bilirubin,Total 1.1 mg/dl (0.2-1.3); Blood Urea Nitrogen 13 mg/dl (7-17); Calcium 9.3 mg/dl (8.4-10.2); Carbon Dioxide 28 mmol/L (22.0-30.0); Chloride 103 mmol/L (98-107); Creatinine Clearance Estimated 80 mL/min (50-200); Estimated Glomerular Filt Rate 50 ml/min (>60); GFR (African American) 60 ML/MIN (>60); Globulin 3.4 g/dL (1.3-3.2); Glucose 108 mg/dl (74-100); Potassium 4.2 mmoL/L (3.5-5.1); Sodium 139 mmol/L (136-145)
[2024-02-02] MEDS: HYDROMORPHONE 2MG/ML SYRINGE 0.5 MG IV ×3 (15:52→23:50)
[2024-02-02] MEDS: LACTATED RINGERS 1000ML 1,000 ML 999 ML IV ×3 (15:52→18:22)
[2024-02-02] MEDS: ACETAMINOPHEN 1,000MG/100ML VIAL 1000 MG IV (15:52)
[2024-02-02] MEDS: KETOROLAC 30MG/ML VIAL 15 MG IV (15:52)
--- NOTE | 2024-02-02 15:57 | ECG_ITS ---
APPROVED REPORT Exam: Resting ECG HR:108 bpm ECG Measurements Heart Rate 108 AXES LA 134 P 65 QRSd 82 QRS 53 QT 336 T 60 QTc 399 Conclusion SINUS TACHYCARDIA NONSPECIFIC ST & T-WAVE ABNORMALITY ABNORMAL RHYTHM ECG Electronically signed by : LAURA HILLMAN, 02/03/2024 00:14:02
[2024-02-02 15:59] LABS: Basophils # 129.3 K/mm3 (0-0.2); Basophils % 29.1 % (0.1-2.0); Eosinophils # 0.1 K/mm3 (0.0-0.4); Hematocrit 31.5 % (37.0-47.0); Hemoglobin 9.6 g/dL (12.2-16.2); Lymphocytes # 411.3 K/mm3 (0.7-4.5); Lymphocytes % 92.5 % (10-50); Mean Corpuscular HGB Conc 30.3 g/dL (31.8-35.4); Mean Corpuscular Hemoglobin 32.8 pg (27.0-31.2); Mean Corpuscular Volume 108.2 fl (81-99); Mean Platelet Volume 8.6 fl (7.4-10.4); Monocytes # 9.1 K/mm3 (0.1-1.0); Monocytes % 2.1 % (1.7-9.3); Neutrophils # 23.9 K/mm3 (1.8-7.8); Platelet Count 97 K/mm3 (142-424); Red Blood Count 2.92 M/mm3 (4.20-5.40); Red Cell Distribution Width 19.2 % (11.5-17.5)
[2024-02-02 16:02] LABS: Neutrophils % 5.4 % (37.0-80.0)
[2024-02-02 16:05] LABS: MANUAL DIFFERENTIAL MANUAL DIFFERENTIAL (MANUAL DIFF); White Blood Count 444.4 K/mm3 (4.8-10.8)
[2024-02-02 16:06] LABS: Lactate Dehydrogenase 2519 U/L (313-618)
--- NOTE | 2024-02-02 16:10 | PC.NURSE ---
Dr. Dykes at bedside
[2024-02-02] MEDS: IOPAMIDOL-370 (76%);100ML BOTTLE 70 ML IV (16:14)
[2024-02-02] MEDS: 0.9 % SODIUM CHLORIDE 50 ML VIAL IV (16:14)
[2024-02-02] MEDS: SODIUM CHLORIDE 0.9% 10ML SYR (RAD ONLY) 10 ML IV (16:14)
[2024-02-02] MEDS: ONDANSETRON 4MG/2ML VIAL 4 MG IV (16:35)
--- NOTE | 2024-02-02 16:38 | ED_ITS ---
Discharge Plan Disposition Patient Disposition: Still a Patient Prescriptions Prescriptions: No Action ropinirole 2 mg tablet 2 mg PO HS Patient Comments: TAKE 1 TABLET BY MOUTH EVERYDAY AT BEDTIME levothyroxine 150 mcg tablet 150 mcg PO AM Patient Comments: TAKE 1 TABLET BY MOUTH EVERY DAY IN THE MORNING ON EMPTY STOMACH omeprazole 20 mg capsule,delayed release(DR/EC) 20 mg PO DAILY Patient Comments: TAKE 1 CAPSULE BY MOUTH EVERY DAY lisinopril-hydrochlorothiazide 20-25 mg tablet 1 tab PO BID Patient Comments: TAKE 1 TABLET TWICE A DAY BY ORAL ROUTE FOR 90 DAYS. rosuvastatin 10 mg tablet 10 mg PO HS Patient Comments: TAKE 1 TABLET BY MOUTH EVERYDAY AT BEDTIME Referrals Follow up/Referrals: Nino Kearns APRN [Primary Care Provider] - See instructions Instructions Patient Instructions: DI for Acute Abdominal Pain Discharge ED Provider: Emir Dykes General Adult HPI General Chief complaint: Abdominal Pain Stated complaint: lower abd pain Time Seen by Provider: 02/02/24 15:08 Mode of Arrival: Ambulatory Source of Information: Patient Limitations: No Limitations Description of Symptoms (Recalled from ER Triage Doc. by RN): PATIENT C/O LEFT- SIDED ABDOMINAL PAIN THAT STARTED EARLIER TODAY AND HAS PROGRESSIVELY GOTTEN WORSE. PATIENT STATES PAIN DOES NOT RADIATE, DENIES NAUSEA, VOMITING AND DIARRHEA. 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 Onset was acute, over the last 24 hours, left upper quadrant, severe, intermittent, debilitating. She has intermittent shortness of breath. No other acute complaints at this time. Related Data Home Medications Medication Instructions Recorded Confirmed levothyroxine 150 mcg tablet 150 mcg PO AM 02/02/24 02/02/24 lisinopril 20 1 tab PO BID 02/02/24 02/02/24 mg-hydrochlorothiazide 25 mg tablet omeprazole 20 mg capsule,delayed 20 mg PO DAILY 02/02/24 02/02/24 release ropinirole 2 mg tablet 2 mg PO HS 02/02/24 02/02/24 rosuvastatin 10 mg tablet 10 mg PO HS 02/02/24 02/02/24 Allergies Allergy/AdvReac Type Severity Reaction Status Date / Time No Known Allergies Allergy Verified 02/02/24 15:07 [facility] Disclaimer: The information contained in this section may have been updated after the patient was seen, as this information can be updated by other users. Medical History (Updated 02/02/24 @ 15:08 by Asiya Becker RN) Leukemia Pancreatitis Social History Smoking Status: Former smoker ROS Obtained: Yes Systems reviewed as appropriate & no additional complaints except as documented Physical Exam General General appearance: alert and in distress Head Head exam: atraumatic and normocephalic Eye Eye exam: Present PERRL and EOMI ENT ENT exam: Present mucous membranes moist Neck Neck exam: Present normal inspection Chest Chest inspection: Present normal inspection and symmetric chest wall rise Respiratory Respiratory exam: Present normal lung sounds bilaterally; Absent respiratory distress Cardiovascular Cardiovascular exam: Present normal rhythm and tachycardia Abdominal Exam Abdominal exam: Present soft, tenderness (Diffuse, worse in left upper quadrant) and guarding Extremities Exam Extremities exam: Present normal inspection Neurological Exam Neurological exam: Present alert Psychiatric Psychiatric exam: Present normal affect Skin Skin exam: Present warm and dry Medical Decision Making Vital Signs: 02/02/24 15:00 02/02/24 15:13 02/02/24 15:30 Temperature 98.6 F 99.0 F Temperature Source Oral Oral Pulse Rate 111 H Pulse Rate [Right Brachial] 113 H 111 H Respiratory Rate 23 13 Blood Pressure 154/102 H Blood Pressure [Right Arm] 154/67 H 150/96 H Blood Pressure Mean [Right Arm] 96 114 Blood Pressure Source [Right Arm] Automatic Cuff Blood Pressure Position [Right Arm] Sitting 02 Sat by Pulse Oximetry 95 93 L 95 Oxygen Delivery Method Room Air Room Air Room Air 02/02/24 16:29 Temperature Temperature Source Pulse Rate 105 H Pulse Rate [Right Brachial] Respiratory Rate Blood Pressure 153/81 H Blood Pressure [Right Arm] Blood Pressure Mean [Right Arm] Blood Pressure Source [Right Arm] Blood Pressure Position [Right Arm] 02 Sat by Pulse Oximetry 91 L Oxygen Delivery Method Room Air Lab Data Lab Results 02/02/24 15:21: WBC 444.4 H*, RBC 2.92 L, Hgb 9.6 L, Hct 31.5 L, MCV 108.2 H, M CH 32.8 H, MCHC 30.3 L, RDW 19.2 H, Plt Count 97 L, MPV 8.6, Neut % (Auto) 5.4 L , Lymph % (Auto) 92.5 H, [place] % (Auto) 2.1, Eos % (Auto) 0.0 L, Baso % (Auto) 29.1 H, Neut # (Auto) 23.9 H, Lymph # (Auto) 411.3 H, [place] # (Auto) 9.1 H, Eos # (Auto) 0.1, Baso # (Auto) 129.3 H, PT 11.7, INR 1.09, Sodium 139, Potassium 4.2, Chloride 103, Carbon Dioxide 28, Anion Gap 12.2, BUN 13, Creatinine 1.10 H, Estimated Creat Clear 80, Estimated GFR 50 L, Est GFR ( Amer) 60, Glucose 108 H, Lactate 1.0, Uric Acid 8.8 H, Calcium 9.3, Magnesium 1.8, Total Bilirubin 1.1, AST 80 H, ALT 28, Alkaline Phosphatase 142 H, Lactate Dehydrogenase 2519 H, Total Protein 8.0, Albumin 4.6, Globulin 3.4 H, Albumin/Globulin Ratio 1.4, Lipase 155 02/02/24 15:21 02/02/24 15:21 Orders (Tests/Meds): ED MEDICATIONS Generic Name Dose Route Start Last Admin Trade Name Freq PRN Reason Stop Dose Admin Ondansetron HCl 4 mg 02/02/24 16:29 02/02/24 16:35 Ondansetron 4mg/2ml Vial IV 02/02/24 16:30 4 mg ONCE ONE Administration Discontinued Medications Generic Name Dose Route Start Last Admin Trade Name Freq PRN Reason Stop Dose Admin Acetaminophen 1,000 mg 02/02/24 15:28 02/02/24 15:52 Acetaminophen 1,000mg/100ml Vial IV 02/02/24 15:29 1,000 mg ONCE ONE Administration Hydromorphone HCl 0.5 mg 02/02/24 15:28 02/02/24 15:52 Hydromorphone 2mg/Ml Syringe IV 02/02/24 15:29 0.5 mg ONCE ONE Administration Lactated Ringer's 1,000 mls @ 999 mls/hr 02/02/24 15:28 02/02/24 15:52 Lactated Ringer's 1000 Ml Bag IV 02/02/24 16:28 999 mls/hr .Q1H1M ONE Administration Iopamidol 70 ml 02/02/24 16:12 02/02/24 16:14 Iopamidol-370 (76%);100ml Bottle IV 02/02/24 16:13 70 ml ONCE ONE Administration Ketorolac Tromethamine 15 mg 02/02/24 15:28 02/02/24 15:52 Ketorolac 30mg/Ml Vial IV 02/02/24 15:29 15 mg ONCE ONE Administration Sodium Chloride 10 ml 02/02/24 16:12 02/02/24 16:14 Sodium Chloride 0.9% 10ml Syr (Rad Only) IV 02/02/24 16:13 10 ml ONCE ONE Administration Sodium Chloride 50 ml 02/02/24 16:12 02/02/24 16:14 0.9 % Sodium Chloride 50 Ml Vial IV 02/02/24 16:13 50 ml ONCE ONE Administration ORDERS Category Date Time Status Type and Screen Stat BBK 02/02/24 16:[address] angio abdomen pelvis Stat Cat Scan 02/02/24 15:[address] angio chest PE protocol Stat Cat Scan 02/02/24 15:41 Taken CBC w/Auto Diff [Complete Blood Count Auto Diff] Stat Lab 02/02/24 15:21 Results CMP [Comprehensive Metabolic Panel] Stat Lab 02/02/24 15:21 Completed INR [Prothrombin Time INR] Stat Lab 02/02/24 15:21 Completed LDH [Lactate Dehydrogenase] Stat Lab 02/02/24 15:21 Completed Lactic Acid Stat Lab 02/02/24 15:21 Completed Lipase Stat Lab 02/02/24 15:21 Completed Magnesium Stat Lab 02/02/24 15:21 Completed UA [Urinalysis and Microscopic] Stat Lab 02/02/24 15:29 Ordered Uric Acid Stat Lab 02/02/24 15:21 Completed Medical Decision Narrative: In summary patient is a 68-year-old female with past medical history described above who presents emergency department for evaluation of left upper quadrant pain in the setting of known T-cell PLL not on therapy. Patient is hemodynamically stable and appearing in significant pain upon arrival, tachycardic. Differential diagnosis includes splenic sequestration, advanced malignancy, hyperviscosity syndrome, among others. Workup be conducted with hematologic labs, emergent CT imaging of the chest, abdomen, pelvis. Initial inventions include crystalloid bolus, Dilaudid, Toradol, Tylenol.
[2024-02-02 16:44] LABS: Lymphocytes % 74 % (10-50); Macrocytosis 2+; Monocytes % 1 % (2-9); Neutrophils % 4 % (42-76); Platelet Estimate Moderate Decrease; Total Cells Counted 100
[2024-02-02 16:45] LABS: Hypochromasia 1+
--- NOTE | 2024-02-02 17:37 | PC.NURSE ---
on phone with JOANNA
[2024-02-02 18:23] LABS: Microscopic, Urine URINE MICROSCOPIC (MICROSCOPIC)
[2024-02-02 18:25] LABS: Appearance,Urine CLEAR (Clear); Bilirubin,Urine Negative (Negative); Blood, Urine 1+ (Negative); Color,Urine YELLOW (Yellow); Glucose,Urine (UA) Negative (Negative); Ketones,Urine Negative (Negative); Leukocyte Esterase,Urine Negative (Negative); Nitrate,Urine Negative (Negative); Protein,Urine TRACE (Negative); Urobilinogen,Urine 0.2 EU/dl (0.2)
[2024-02-02 18:36] LABS: WBC,Urine Occasional #/hpf (0-3)
--- NOTE | 2024-02-02 18:42 | PC.NURSE ---
spoke with rocio at hospice who requests ED records be faxed to intake and thwy would call back
[2024-02-02] MEDS: SODIUM CHLORIDE 0.9% 25ML BAG 25 ML IV (18:49)
[2024-02-02] MEDS: PROMETHAZINE HCL 25MG/ML 1ML VIAL 25 MG IV (18:54)
[2024-02-02] MEDS: ROPINIROLE 1MG TABLET 2 MG PO (19:13)
[2024-02-02] MEDS: OXYCODONE 5MG IMMEDIATE RELEASE TABLET 5 MG PO (19:13)
--- NOTE | 2024-02-02 21:42 | PC.NURSE ---
Admissions notified for admit
--- NOTE | 2024-02-02 21:43 | PC.NURSE ---
Hospice Nurse is bedside.
--- NOTE | 2024-02-02 21:55 | PC.NURSE ---
Tried to call report, no answer.
--- NOTE | 2024-02-02 22:01 | PC.NURSE ---
In room with another patient at first call @ [phone]. After receiving help, called ER back @ [phone].
--- NOTE | 2024-02-02 22:01 | PC.NURSE ---
Report given to Med Surg nurse
--- NOTE | 2024-02-02 22:14 | PC.NURSE ---
Patient arrived to floor via stretcher from ED at 22:12.
[2024-02-02] MEDS: PROCHLORPERAZINE 10MG/2ML VIAL 5 MG IV (22:42)
[2024-02-02] MEDS: LACTATED RINGERS 1000ML 1,000 ML 100 ML IV (22:42)
--- NOTE | 2024-02-02 22:48 | P.HP_ITS ---
History of Present Illness *Admission Date: 02/02/24 *Reason for visit:: Abdominal pain *History of present illness: This is a 68-year-old female with past medical history of hypertension, bulimia, hypothyroidism with also a known diagnosis of prolymphocytic leukemia of T-cell who presents emergency department today with complaints of left upper quadrant pain. Patient has a known history of leukemia for which she was diagnosed approximately 1 year ago. At that time she decided not to seek treatment for her cancer. She comes in with increasing left upper quadrant pain. She is aware that this pain is likely related to her cancer and on presentation to the emergency department, requested hospice consult. She states that she does not want further workup for this and does want to seek evaluation for home hospice. [facility] navigators saw patient in the emergency department and completed evaluation for home hospice. She was noted to be hypoxic in the emergency room during this workup with mild tachycardia.. CTA of the chest and abdomen are completed and notable for low-density nodule of the right thyroid as well as mild mediastinal lymphadenopathy. Abdominal scan notable for splenomegaly associated with lymphadenopathy consistent with PML, perisplenic and perirenal edema or fluid related to anasarca. After [facility] navigators evaluated patient, they stated they would not be able to square away oxygen for her this evening and requested observation over night until durable medical equipment could be provided for patient. Given this, she is admitted to the hospitalist service for observation. [facility] Disclaimer: The information contained in this section may have been updated after the patient was seen, as this information can be updated by other users. Medical History Leukemia Pancreatitis Social History (Updated 02/02/24 @ 22:55 by Lourdes Smallwood RN) Smoking Status: Former smoker alcohol intake: never current occupational status: other Travel in the last 8 weeks: None Review of Systems Constitutional Constitutional: Reports as per HPI Eyes Eyes: Reports as per HPI ENT Ears, Nose, Mouth, and Throat: Reports as per HPI *Cardiovascular Cardiovascular: Reports as per HPI *Respiratory Respiratory: Reports as per HPI *Gastrointestinal Gastrointestinal: Reports as per HPI *Genitourinary Genitourinary: Reports as per HPI *Musculoskeletal Musculoskeletal: Reports as per HPI Integumentary/Breasts Skin/Breast: Reports as per HPI *Neurologic Neurologic: Reports as per HPI Psychiatric Psychiatric: Reports as per HPI Endocrine Endocrine: Reports as per HPI Hematologic/Lymphatic Hematologic/Lymphatic: Reports as per HPI Allergic/Immunologic Allergic/Immunologic: Reports as per HPI Meds Home Medications and Allergies Home Medications Medication Instructions Recorded Confirmed Type levothyroxine 150 mcg tablet 150 mcg PO AM 02/02/24 02/02/24 History lisinopril 20 1 tab PO BID 02/02/24 02/02/24 History mg-hydrochlorothiazide 25 mg tablet omeprazole 20 mg capsule,delayed 20 mg PO DAILY 02/02/24 02/02/24 History release ropinirole 2 mg tablet 1 mg PO HS 02/02/24 02/02/24 History hydrocodone 5 mg-acetaminophen 325 1 tab PO Q4HP PRN Moderate Pain 02/03/24 Rx mg tablet (4-6) 3 days #18 tabs ondansetron 4 mg disintegrating 4 mg PO Q8H PRN nausea and 02/03/24 Rx tablet vomiting 5 days #15 tabs New Prescriptions to Start Prescriptions: hydrocodone-acetaminophen Rafi Leger ondansetron Rafi Leger Allergies Allergy/AdvReac Type Severity Reaction Status Date / Time No Known Allergies Allergy Verified 02/02/24 15:07 Exam Data for Last 24 hours Vital signs and Labs for Last 24 Hours: Temp Pulse Resp BP Pulse Ox O2 Del Method O2 Flow Rate 98.6 F 110 H 17 124/80 95 Nasal Cannula 3 02/02/24 22:24 02/02/24 22:24 02/02/24 22:24 02/02/24 22:24 02/02/24 22:24 02/02/24 22:24 02/02/24 22:24 Laboratory Results - last 24 hr 02/02/24 15:21: WBC 444.4 H*, RBC 2.92 L, Hgb 9.6 L, Hct 31.5 L, MCV 108.2 H, MCH 32.8 H, MCHC 30.3 L, RDW 19.2 H, Plt Count 97 L, MPV 8.6, Neut % (Auto) 5.4 L, Lymph % (Auto) 92.5 H, [place] % (Auto) 2.1, Eos % (Auto) 0.0 L, Baso % (Auto) 29.1 H, Neut # (Auto) 23.9 H, Lymph # (Auto) 411.3 H, [place] # (Auto) 9.1 H, Eos # (Auto) 0.1, Baso # (Auto) 129.3 H, Total Counted 100, Neutrophils % (Manual) 4 L , Band Neutrophils % 1.0, Lymphocytes % (Manual) 74 H, Atypical Lymphs % 14.0, Monocytes % (Manual) 1 L, Basophils % (Manual) 1.0, Blast Cells % 5.0, Differential Comment Comment, Platelet Estimate Moderate decrease, Hypochromasia 1+, Macrocytosis 2+, PT 11.7, INR 1.09, Sodium 139, Potassium 4.2, Chloride 103, Carbon Dioxide 28, Anion Gap 12.2, BUN 13, Creatinine 1.10 H, Estimated Creat Clear 80, Estimated GFR 50 L, Est GFR ( Amer) 60, Glucose 108 H, Lactate 1.0, Uric Acid 8.8 H, Calcium 9.3, Magnesium 1.8, Total Bilirubin 1.1, AST 80 H, ALT 28, Alkaline Phosphatase 142 H, Lactate Dehydrogenase 2519 H, Total Protein 8.0, Albumin 4.6, Globulin 3.4 H, Albumin/Globulin Ratio 1.4, Lipase 155 02/02/24 18:19: Urine Color Yellow, Urine Appearance Clear, Urine pH 5.0, Ur Specific [place] 1.020, Urine Protein Trace, Urine Glucose (UA) Negative, Urine Ketones Negative, Urine Blood 1+, Urine Nitrate Negative, Urine Bilirubin Negative, Urine Urobilinogen 0.2, Ur Leukocyte Esterase Negative, Urine RBC 5- 10, Urine WBC Occasional, Ur Squamous Epith Cells 3-5, Urine Bacteria None I & O for Last 24 hours: Intake & Output 01/30/24 01/31/24 02/01/24 02/02/24 23:59 23:59 23:59 23:59 Weight 102.2 kg Constitutional Constitutional: no acute distress *Routine HEENT Exam Head: Present normocephalic Eye: Present EOMI and PERRL ENT: Present mucous membranes moist *Routine Neck Exam Neck: Present supple; Absent lymphadenopathy *Routine Respiratory Exam Respiratory: Present CTA bilaterally Comments: Hypoxia on O2 *Routine Cardiovascular Exam Cardiovascular: Present tachycardia Comments: low sinus Tachycardia *Routine Abdominal Exam Abdominal: Present soft, normoactive bowel sounds and tenderness Comments: LUQ edema noted *Routine Rectal Exam Rectal:: deferred *Routine Genitalia Exam Genitalia:: deferred *Routine Extremities Exam Extremities: Absent cyanosis, clubbing or edema *Routine Skin Exam Skin: Present warm; Absent rash *Routine Neurological Exam Neurological: Present alert and oriented X3 Assessment and Plan *Assessment and plan (1) Prolymphocytic leukemia of T-cell: Status: Acute Category: Medical Code(s): C91.60 - Prolymphocytic leukemia of T-cell type not having achieved remission (2) Hypoxia: Status: Acute Category: Medical Code(s): R09.02 - Hypoxemia (3) Hypothyroidism: Status: Acute Qualifiers: Hypothyroidism type: acquired Qualified Code(s): E03.9 - Hypothyroidism, unspecified Category: Medical Code(s): E03.9 - Hypothyroidism, unspecified (4) Thrombocytopenia: Status: Acute Category: Medical Code(s): D69.6 - Thrombocytopenia, unspecified (5) Hypertension: Status: Acute Qualifiers: Hypertension type: primary hypertension Qualified Code(s): I10 - Essential (primary) hypertension Category: Medical Code(s): I10 - Essential (primary) hypertension Plan This is a 68-year-old female with known PML with worsening left upper quadrant pain and hypoxia. Requesting hospice care. Secondary to patient's hypoxia, unable to be sent home with home hospice overnight. She is admitted for observation until further durable medical equipment can be supplied. #PML Known history with refusal of treatment. Does not wish for further workup regarding this. Requesting hospice. [facility] navigators presented to the ER for hospice plan. Given patient's hypoxia, admitted overnight and self further oxygen supplies can be gathered for home hospice. Continue multimodal pain medication Continue nausea medication #Hypoxia Likely sequela of disease. CTA without evidence of PE, no pneumonia seen on imaging. Offered COVID and flu swab but patient refused Continue supplemental oxygen #Hypothyroidism Continue home levothyroxine #Hypertension Patient reports not medications at home secondary to mildly low blood pressure. Normotensive here, will hold at this time #Thrombocytopenia Platelet count of 97,000 No obvious risks of bleeding Will hold DVT prophylaxis DNR/DNI Rounded on patient after nurse practitioner. Personally examined and interviewed patient. Agree with exam findings and care plan as documented.
--- NOTE | 2024-02-02 23:10 | PC.NURSE ---
Pt refuses respiratory swab.
[2024-02-03] VITALS: BP 142/67; PULSE 93; RESP 18; TEMP 37; O2SAT 93
[2024-02-03 04:00] VITALS: BP 125/81; PULSE 101; RESP 17; TEMP 36.6; O2SAT 96; BMI 37.5
[2024-02-03] MEDS: HYDROMORPHONE 2MG/ML SYRINGE 0.5 MG IV ×4 (04:06→14:41)
--- NOTE | 2024-02-03 05:01 | PC.NURSE ---
Pt is alert and oriented. Complains of left upper quadrant pain, treated per nov. Complained of nausea one time, treated per nov. No other complaints. Requiring 3L NC to remain >90% O2 sat. Pt ambulates to the restroom standby assist. Plan is to go home on hospice care. Call light in reach.
--- NOTE | 2024-02-03 07:24 | P.DS_ITS ---
General Admission date:: 02/02/24 Discharge date: 02/03/24 HPI HPI HPI: This is a 68-year-old female with past medical history of hypertension, bulimia, hypothyroidism with also a known diagnosis of prolymphocytic leukemia of T-cell who presents emergency department today with complaints of left upper quadrant pain. Patient has a known history of leukemia for which she was diagnosed approximately 1 year ago. At that time she decided not to seek treatment for her cancer. She comes in with increasing left upper quadrant pain. She is aware that this pain is likely related to her cancer and on presentation to the emergency department, requested hospice consult. She states that she does not want further workup for this and does want to seek evaluation for home hospice. [facility] navigators saw patient in the emergency department and completed evaluation for home hospice. She was noted to be hypoxic in the emergency room during this workup with mild tachycardia.. CTA of the chest and abdomen are completed and notable for low-density nodule of the right thyroid as well as mild mediastinal lymphadenopathy. Abdominal scan notable for splenomegaly associated with lymphadenopathy consistent with PML, perisplenic and perirenal edema or fluid related to anasarca. After [facility] care navigators evaluated patient, they stated they would not be able to square away oxygen for her this evening and requested observation overnight until durable medical equipment could be provided for patient. Given this, she is admitted to the hospitalist service for observation. Hospital Course Hospital Course Hospital Course: This is a 68-year-old female with known PML with worsening left upper quadrant pain and hypoxia. Requesting hospice care. Secondary to patient's hypoxia, unable to be sent home with home hospice overnight. She was admitted for altered patient overnight. Patient stable on 3 L nasal cannula oxygen. Will discharge home with hospice to evaluate when she arrives home. Problems addressed as follows: #PML Known history with refusal of treatment. Does not wish for further workup regarding this. Requesting hospice. [facility] care navigators presented to the ER for hospice plan. Given patient's hypoxia, admitted overnight and stabilized. Necessitating 3 L oxygen. Hospice to provide resources at home, will evaluate patient when she gets home and admitted at that time. Continued multimodal pain control during admission. Treatment for nausea continued. #Hypoxia Likely sequela of disease. CTA without evidence of PE, no pneumonia seen on imaging. Offered COVID and flu swab but patient refused. Tolerating 3 L nasal cannula oxygen to maintain saturations above 90%. Was hypoxic in the 80s at rest on room air. #Hypothyroidism: Continue home levothyroxine #Hypertension: Patient reports no medications at home secondary to mildly low blood pressure. Normotensive here, will hold at this time #Thrombocytopenia Platelet count of 97,000 No obvious risks of bleeding Patient discharged home. Hospice to meet her at home and discuss admitting to their services at that time. Exam Data for Last 24 hours Vital signs and Labs for Last 24 Hours: Temp Pulse Resp BP Pulse Ox O2 Del Method O2 Flow Rate 97.9 F 101 H 17 125/81 96 Nasal Cannula 3 02/03/24 04:00 02/03/24 04:00 02/03/24 04:00 02/03/24 04:00 02/03/24 04:00 02/03/24 06:50 02/03/24 05:00 Laboratory Results - last 24 hr 02/02/24 15:21: WBC 444.4 H*, RBC 2.92 L, Hgb 9.6 L, Hct 31.5 L, MCV 108.2 H, MCH 32.8 H, MCHC 30.3 L, RDW 19.2 H, Plt Count 97 L, MPV 8.6, Neut % (Auto) 5.4 L, Lymph % (Auto) 92.5 H, Rich % (Auto) 2.1, Eos % (Auto) 0.0 L, Baso % (Auto) 29.1 H, Neut # (Auto) 23.9 H, Lymph # (Auto) 411.3 H, Rich # (Auto) 9.1 H, Eos # (Auto) 0.1, Baso # (Auto) 129.3 H, Total Counted 100, Neutrophils % (Manual) 4 L , Band Neutrophils % 1.0, Lymphocytes % (Manual) 74 H, Atypical Lymphs % 14.0, Monocytes % (Manual) 1 L, Basophils % (Manual) 1.0, Blast Cells % 5.0, Differential Comment Comment, Platelet Estimate Moderate decrease, Hypochromasia 1+, Macrocytosis 2+, PT 11.7, INR 1.09, Sodium 139, Potassium 4.2, Chloride 103, Carbon Dioxide 28, Anion Gap 12.2, BUN 13, Creatinine 1.10 H, Estimated Creat Clear 80, Estimated GFR 50 L, Est GFR ( Amer) 60, Glucose 108 H, Lactate 1.0, Uric Acid 8.8 H, Calcium 9.3, Magnesium 1.8, Total Bilirubin 1.1, AST 80 H, ALT 28, Alkaline Phosphatase 142 H, Lactate Dehydrogenase 2519 H, Total Protein 8.0, Albumin 4.6, Globulin 3.4 H, Albumin/Globulin Ratio 1.4, Lipase 155 02/02/24 18:19: Urine Color Yellow, Urine Appearance Clear, Urine pH 5.0, Ur Specific [place] 1.020, Urine Protein Trace, Urine Glucose (UA) Negative, Urine Ketones Negative, Urine Blood 1+, Urine Nitrate Negative, Urine Bilirubin Negative, Urine Urobilinogen 0.2, Ur Leukocyte Esterase Negative, Urine RBC 5- 10, Urine WBC Occasional, Ur Squamous Epith Cells 3-5, Urine Bacteria None I & O for Last 24 hours: Intake & Output 01/31/24 02/01/24 02/02/24 02/03/24 23:59 23:59 23:59 23:59 Intake Total 595 / 595 Output Total 0 / 0 Balance 595 / 595 Weight 102.2 kg 102.2 kg Constitutional Constitutional: mild distress, obese and chronically ill appearing *Routine HEENT Exam Head: Present normocephalic Eye: Present EOMI and PERRL ENT: Present mucous membranes moist *Routine Neck Exam Neck: Present supple; Absent lymphadenopathy *Routine Respiratory Exam Respiratory: Present CTA bilaterally *Routine Cardiovascular Exam Cardiovascular: Present RRR *Routine Abdominal Exam Abdominal: Present soft and normoactive bowel sounds; Absent tenderness *Routine Rectal Exam Patient deferred: visual exam *Routine Exam Patient deferred: external exam *Routine Extremities Exam Extremities: Absent cyanosis, clubbing or edema *Routine Skin Exam Skin: Present warm; Absent rash *Routine Neurological Exam Neurological: Present alert, oriented X3 and moving all extremities; Absent altered mental status Results Data Completed and Pending Labs on day of discharge: Labs from last 24 hours 02/02/24 02/02/24 18:19 15:21 WBC 444.4 H* RBC 2.92 L Hgb 9.6 L Hct 31.5 L MCV 108.2 H MCH 32.8 H MCHC 30.3 L RDW 19.2 H Plt Count 97 L MPV 8.6 Neut % (Auto) 5.4 L Lymph % (Auto) 92.5 H Rich % (Auto) 2.1 Eos % (Auto) 0.0 L Baso % (Auto) 29.1 H Neut # (Auto) 23.9 H Lymph # (Auto) 411.3 H Rich # (Auto) 9.1 H Eos # (Auto) 0.1 Baso # (Auto) 129.3 H Total Counted 100 Neutrophils % (Manual) 4 L Band Neutrophils % 1.0 Lymphocytes % (Manual) 74 H Atypical Lymphs % 14.0 Monocytes % (Manual) 1 L Basophils % (Manual) 1.0 Blast Cells % 5.0 Differential Comment Comment Platelet Estimate Moderate decrease Hypochromasia 1+ Macrocytosis 2+ PT 11.7 INR 1.09 Sodium 139 Potassium 4.2 Chloride 103 Carbon Dioxide 28 Anion Gap 12.2 BUN 13 Creatinine 1.10 H Estimated Creat Clear 80 Estimated GFR 50 L Est GFR ( Amer) 60 Glucose 108 H Lactate 1.0 Uric Acid 8.8 H Calcium 9.3 Magnesium 1.8 Total Bilirubin 1.1 AST 80 H ALT 28 Alkaline Phosphatase 142 H Lactate Dehydrogenase 2519 H Total Protein 8.0 Albumin 4.6 Globulin 3.4 H Albumin/Globulin Ratio 1.4 Lipase 155 Urine Color Yellow Urine Appearance Clear Urine pH 5.0 Ur Specific [place] 1.020 Urine Protein Trace Urine Glucose (UA) Negative Urine Ketones Negative Urine Blood 1+ Urine Nitrate Negative Urine Bilirubin Negative Urine Urobilinogen 0.2 Ur Leukocyte Esterase Negative Urine RBC 5-10 Urine WBC Occasional Ur Squamous Epith Cells 3-5 Urine Bacteria None DS: Diagnosis Discharge Diagnosis (1) Prolymphocytic leukemia of T-cell: Status: Acute Code(s): C91.60 - Prolymphocytic leukemia of T-cell type not having achieved remission (2) Hypoxia: Status: Acute Code(s): R09.02 - Hypoxemia (3) Hypothyroidism: Status: Acute Code(s): E03.9 - Hypothyroidism, unspecified Qualifiers: Hypothyroidism type: acquired Qualified Code(s): E03.9 - Hypothyroidism, unspecified (4) Thrombocytopenia: Status: Acute Code(s): D69.6 - Thrombocytopenia, unspecified (5) Hypertension: Status: Acute Code(s): I10 - Essential (primary) hypertension Qualifiers: Hypertension type: primary hypertension Qualified Code(s): I10 - Essential (primary) hypertension Meds Home Medications and Allergies Home Medications Medication Instructions Recorded Confirmed Type levothyroxine 150 mcg tablet 150 mcg PO AM 02/02/24 02/02/24 History lisinopril 20 1 tab PO BID 02/02/24 02/02/24 History mg-hydrochlorothiazide 25 mg tablet omeprazole 20 mg capsule,delayed 20 mg PO DAILY 02/02/24 02/02/24 History release ropinirole 2 mg tablet 1 mg PO HS 02/02/24 02/02/24 History hydrocodone 5 mg-acetaminophen 325 1 tab PO Q4HP PRN Moderate Pain 02/03/24 Rx mg tablet (4-6) 3 days #18 tabs ondansetron 4 mg disintegrating 4 mg PO Q8H PRN nausea and 02/03/24 Rx tablet vomiting 5 days #15 tabs New Prescriptions to Start Prescriptions: hydrocodone-acetaminophen Rafi Leger ondansetron Rafi Leger Allergies Allergy/AdvReac Type Severity Reaction Status Date / Time No Known Allergies Allergy Verified 02/02/24 15:07 Discharge Plan Disposition Patient Disposition: Hospice - Home Condition: Undetermined Discharge Order Discharge Orders: Discharge Order (Routine); Ordered 02/03/24 Ordered By: Rafi Leger Follow up Plan Follow up with: Nino Kearns APRN [Primary Care Provider] - 02/11/24 11:00 am Prescriptions/Medication Reconciliation: New hydrocodone-acetaminophen 5-325 mg Tablet 1 tab PO Q4HP PRN (Reason: Moderate Pain (4-6)) 3 Days Qty: 18 0RF ondansetron 4 mg tablet,disintegrating 4 mg PO Q8H PRN (Reason: nausea and vomiting) 5 Days Qty: 15 0RF Continued ropinirole 2 mg tablet 1 mg PO HS Patient Comments: TAKE 1 TABLET BY MOUTH EVERYDAY AT BEDTIME levothyroxine 150 mcg tablet 150 mcg PO AM Patient Comments: TAKE 1 TABLET BY MOUTH EVERY DAY IN THE MORNING ON EMPTY STOMACH omeprazole 20 mg capsule,delayed release(DR/EC) 20 mg PO DAILY Patient Comments: TAKE 1 CAPSULE BY MOUTH EVERY DAY lisinopril-hydrochlorothiazide 20-25 mg tablet 1 tab PO BID Patient Comments: TAKE 1 TABLET TWICE A DAY BY ORAL ROUTE FOR 90 DAYS. Discontinued rosuvastatin 10 mg tablet 10 mg PO HS Patient Comments: TAKE 1 TABLET BY MOUTH EVERYDAY AT BEDTIME Problem Reconciliation Problems Reviewed?: Yes Patient Discharge Instructions ACTIVITY: Continue current activity DIET: continue same diet Patient Instructions: DI for Hypoxia Providers Primary Care Provider: Nino Kearns Admit Provider: Rafi Leger Attending Provider: Rafi Leger
[2024-02-03 07:49] VITALS: BP 126/81; PULSE 110; RESP 24; TEMP 36.6; O2SAT 95
--- NOTE | 2024-02-03 08:14 | SW/DCPLANNER ---
Addendum entered by Nifna Lucas 02/03/24 11:37: Per Ina blanton/ [facility] all home DME will be set up today by 12PM. Original Note: [facility] and the plan is to have all appropriate DME set up in home today and patient to return home w/ Hospice to admit. I have faxed all updated information to Ina blanton/ [facility].
[2024-02-03] MEDS: HYDROCODONE/APAP 5/325 MG TABLET 1 TAB PO ×2 (08:25→15:52)
== END 2024-02-03 16:25 | disposition hospice, home (50) ==
LOC: UTC 14:48 → ER 15:09 → 2ND 22:14
PROVIDERS: Physician Assistant; Admitting Provider Internal Medicine Adolescent Medicine; Emergency Provider Emergency Medicine; PCP Nurse Practitioner Family; Visit Provider Internal Medicine Adolescent Medicine
DX: C91.60 Prolymphocytic leukemia of T-cell type not having achieved remission (principal); R09.02 Hypoxemia; E03.9 Hypothyroidism, unspecified; D69.6 Thrombocytopenia, unspecified; I10 Essential (primary) hypertension; Z79.899 Other long term (current) drug therapy; Z87.891 Personal history of nicotine dependence
CPT/HCPCS: 71275; 74174; 80053; 81001; 83605; 83615; 83690; 83735; 84550; 85007; 85025; 85610; 93005; 99285; G0378; J0131; J2405; Q9967

== ENCOUNTER 2024-02-09 18:44 | Emergency (ER) | payer OTHER, SELFPAY ==
[2024-02-09 18:44] VITALS: BP 130/67; PULSE 101; RESP 24; TEMP 37; O2SAT 88; BMI 37.4
--- NOTE | 2024-02-09 18:46 | PC.NURSE ---
DR HILLMAN AT [facility]
--- NOTE | 2024-02-09 18:59 | ED_ITS ---
Discharge Plan Disposition Patient Disposition: Home, Self-Care Prescriptions Prescriptions: New sulfamethoxazole-trimethoprim [Bactrim DS] 800-160 mg tablet 1 tab PO BID 7 Days Qty: 14 0RF No Action ropinirole 2 mg tablet 1 mg PO HS Patient Comments: TAKE 1 TABLET BY MOUTH EVERYDAY AT BEDTIME levothyroxine 150 mcg tablet 150 mcg PO AM Patient Comments: TAKE 1 TABLET BY MOUTH EVERY DAY IN THE MORNING ON EMPTY STOMACH omeprazole 20 mg capsule,delayed release(DR/EC) 20 mg PO DAILY Patient Comments: TAKE 1 CAPSULE BY MOUTH EVERY DAY lisinopril-hydrochlorothiazide 20-25 mg tablet 1 tab PO BID Patient Comments: TAKE 1 TABLET TWICE A DAY BY ORAL ROUTE FOR 90 DAYS. hydrocodone-acetaminophen 5-325 mg Tablet 1 tab PO Q4HP PRN (Reason: Moderate Pain (4-6)) 3 Days Qty: 18 0RF ondansetron 4 mg tablet,disintegrating 4 mg PO Q8H PRN (Reason: nausea and vomiting) 5 Days Qty: 15 0RF Referrals Follow up/Referrals: Nino Kearns APRN [Primary Care Provider] - See instructions Activity Restrictions/Add. Instructions Additional Instructions/Restrictions: At this time it was felt appropriate to discharge you home. You likely have a blood clot in your arm, there may be superimposed infection for which we are giving you an antibiotic. We had a long talk today about your disease course and unfortunately your cancer is terminal and these blood clots will likely continue to worsen. Is very important that we keep your symptoms under control. If your pain ever becomes uncontrollable and hospice is unable to assist you any further please feel free to present to the emergency department where we can try and figure out a plan to control your symptoms. Please take antibiotics as prescribed and use hot and cold compresses on the affected arm. We did not work you up or treat anything related to your cancer today and it will not affect your hospice in any way. I am sorry that you are going through this and which we had more options but unfortunately we are at a point where keeping you comfortable is paramount. Clinical Impressions Clinical Impression: Prolymphocytic leukemia of T-cell, Cellulitis, Acute deep vein thrombosis of u pper extremity Instructions Patient Instructions: DI for Skin Abscess Discharge ED Provider: Emir Dykes General Adult HPI <JEAN MARIE Lane - Last Filed: 02/09/24 18:59> General Chief complaint: Skin/Abscess/Foreign Body Stated complaint: KNEE PAIN Time Seen by Provider: 02/09/24 18:58 Mode of Arrival: EMS Source of Information: Patient, Relative and EMS Limitations: No Limitations Description of Symptoms (Recalled from ER Triage Doc. by RN): pt was recently seen and admitted here and is back today bilateral leg pain and redness around her old iv site Related Data Home Medications Medication Instructions Recorded Confirmed levothyroxine 150 mcg tablet 150 mcg PO AM 02/02/24 02/02/24 lisinopril 20 1 tab PO BID 02/02/24 02/02/24 mg-hydrochlorothiazide 25 mg tablet omeprazole 20 mg capsule,delayed 20 mg PO DAILY 02/02/24 02/02/24 release ropinirole 2 mg tablet 1 mg PO HS 02/02/24 02/02/24 Previous Rx's Medication Instructions Recorded hydrocodone 5 mg-acetaminophen 325 1 tab PO Q4HP PRN Moderate Pain 02/03/24 mg tablet (4-6) 3 days #18 tabs ondansetron 4 mg disintegrating 4 mg PO Q8H PRN nausea and 02/03/24 tablet vomiting 5 days #15 tabs sulfamethoxazole 800 1 tab PO BID cellulitis 7 days #14 02/09/24 mg-trimethoprim 160 mg tablet tabs (Bactrim DS) Allergies Allergy/AdvReac Type Severity Reaction Status Date / Time No Known Allergies Allergy Verified 02/02/24 15:07 <Emir Dykes MD - Last Filed: 02/09/24 19:18> History of Present Illness HPI narrative: Patient is a 68-year-old female with past medical history of untreated leukemia by choice who I evaluated last week and ultimately prolonged decision-making was had and we transition to hospice who presents emergency department for e valuation of upper extremity pain and right lower extremity pain. Patient has been intermittently compliant with her fentanyl patches and oxycodone at home. Her condition is terminal and we are trying to keep her symptoms under control. Since Saturday she has had redness and pain in her left antecubital fossa and right area behind her knee. No other acute complaints at this time. [facility] <JEAN MARIE Lane - Last Filed: 02/09/24 18:59> [facility] Disclaimer: The information contained in this section may have been updated after the patient was seen, as this information can be updated by other users. Medical History Leukemia Pancreatitis Social History (Updated 02/02/24 @ 22:55 by Lourdes Smallwood RN) Smoking Status: Never smoker alcohol intake: never current occupational status: other Travel in the last 8 weeks: None <JEAN MARIE Lane - Last Filed: 02/09/24 18:59> ROS Obtained: Yes Systems reviewed as appropriate & no additional complaints except as documented Physical Exam <JEAN MARIE Lane - Last Filed: 02/09/24 18:59> General General appearance: alert and in no apparent distress Head Head exam: atraumatic and normal inspection Eye Eye exam: Present normal appearance, PERRL and EOMI ENT ENT exam: Present normal exam, normal oropharynx and mucous membranes moist Neck Neck exam: Present normal inspection, full ROM and trachea midline; Absent lymphadenopathy Chest Chest inspection: Present normal inspection and symmetric chest wall rise Respiratory Respiratory exam: Present normal lung sounds bilaterally; Absent accessory muscle use Cardiovascular Cardiovascular exam: Present regular rate, normal rhythm, normal heart sounds, +S1 and +S2 Abdominal Exam Abdominal exam: Present soft and normal bowel sounds; Absent tenderness, guarding or rebound Extremities Exam Extremities exam: Present normal inspection and full ROM Neurological Exam Neurological exam: Present alert, oriented X3 and CN II-XII intact Psychiatric Psychiatric exam: Present normal affect and normal mood Skin Skin exam: Present warm, dry and normal color Lymphatic Lymphatic Findings: no adenopathy <Emir Dykes MD - Last Filed: 02/09/24 19:18> General General appearance: alert and in no apparent distress Head Head exam: atraumatic and normocephalic Eye Eye exam: Present PERRL ENT ENT exam: Present mucous membranes moist Neck Neck exam: Present normal inspection Chest Chest inspection: Present normal inspection and symmetric chest wall rise Respiratory Respiratory exam: Absent respiratory distress Cardiovascular Cardiovascular exam: Present normal rhythm and tachycardia Abdominal Exam Abdominal exam: Present distention; Absent tenderness Extremities Exam Extremities exam: Present other (Tender swelling erythema in the left antecubital fossa that is indurated. Area of swelling in the right area behind the knee with no overlying erythema, nontender.) Neurological Exam Neurological exam: Present alert Psychiatric Psychiatric exam: Present normal affect Skin Skin exam: Present warm and dry Medical Decision Making <JEAN MARIE Lane - Last Filed: 02/09/24 18:59> Vital Signs: 02/09/24 18:44 02/09/24 19:05 Temperature 98.6 F Temperature Source Oral Pulse Rate 101 H Pulse Rate [Right Radial] 101 H Respiratory Rate 24 Blood Pressure 113/67 Blood Pressure [Right Arm] 130/67 Blood Pressure Mean [Right Arm] 88 Blood Pressure Position Sitting 02 Sat by Pulse Oximetry 88 L 95 Oxygen Delivery Method Room Air Room Air Oxygen Flow Rate (LPM) 2 Orders (Tests/Meds): ED MEDICATIONS Discontinued Medications Generic Name Dose Route Start Last Admin Trade Name Freq PRN Reason Stop Dose Admin Trimethoprim/Sulfamethoxazole 1 each 02/09/24 19:05 Sulfa/Trimethoprim 1 Tablet PO 02/09/24 19:06 ONCE ONE Medical Decision Narrative: In summary patient is a [age, sex] who presents to the emergency department for evaluation of [complaint]. Patient is [hemodynamically stable/unstable] upon arrival, [febrile/afebrile]. [Unremarkable physical exam, nonfocal exam versus focal remarkable exam]. Differential diagnosis includes [DDx]. Initial workup will be conducted with [hematologic labs, imaging, respiratory swab, describe workup]. Initial interventions include [crystalloid bolus, medications, p.o. challenge, etc.] initial workup reviewed by me [hematologic labs are remarkable for... Imaging remarkable for... Urinalysis remarkable for]. Upon repeat evaluation [patient had acceptable resolution of symptoms, had persistent pain for which additional interventions were conducted (describe interventions), tolerated p.o., was ambulatory, etc.]. Given this [patient is appropriate for discharge at this time and will be discharged with a prescription for... The case was discussed with hospital medicine regarding management and they will admit the patient their service for continued evaluation at this time... Etc.] Places where you can increase complexity: I informally interpreted the patient's chest x-ray or CT read and is remarkable for... Documenting what the alarm security or surveillance monitor shows with rate and rhythm Consideration of test but deferring. Ex: I considered chest x-ray on this patient however given that they have no oxygen requirement and are clear to auscultation all lung tong will be deferred. Social determinants of health: Given that patient is undomiciled increases complexity. Given that patient has polysubstance abuse compounds all aspects of care <Emir Dykes MD - Last Filed: 02/09/24 19:18> [place] Inquiry Pt receiving controlled substance: No Vital Signs: 02/09/24 18:44 02/09/24 19:05 Temperature 98.6 F Temperature Source Oral Pulse Rate 101 H Pulse Rate [Right Radial] 101 H Respiratory Rate 24 Blood Pressure 113/67 Blood Pressure [Right Arm] 130/67 Blood Pressure Mean [Right Arm] 88 Blood Pressure Position Sitting 02 Sat by Pulse Oximetry 88 L 95 Oxygen Delivery Method Room Air Room Air Oxygen Flow Rate (LPM) 2 Orders (Tests/Meds): ED MEDICATIONS Discontinued Medications Generic Name Dose Route Start Last Admin Trade Name Freq PRN Reason Stop Dose Admin Trimethoprim/Sulfamethoxazole 1 each 02/09/24 19:05 Sulfa/Trimethoprim 1 Tablet PO 02/09/24 19:06 ONCE ONE Medical Decision Narrative: In summary patient is a 68-year-old female with past medical history described above who presents emergency department for evaluation of left arm pain in the setting of terminal leukemia on hospice. Patient is hemodynamically stable upon arrival. [id number] ultrasound at bedside shows noncompressible brachial vein concerning for DVT. There is overlying erythema which is likely financial service representative of phlebitis however can also be cellulitis given that this is the site of her IV last week. Prolonged care decision-making discussion was had at bedside, anticoagulation will just delay the inevitability of her terminal condition, her hyperleukocytosis makes it very likely that anticoagulation will be ineffective anyways. It is paramount that we control her symptoms. Patient was talked with bedside and she will begin taking her fentanyl patches and oxycodone as they were prescribed. Given the possibility of cellulitis patient be treated with Bactrim for which the first dose will be administered here. Her disease course was discussed at bedside as all of her complications related to her malignancy including this will likely get worse prior to her expiration. Workup with labs and imaging was considered however ultimately are not indicated and will not be pursued at this time. Patient discharged in stable condition Critical Care <Emir Dykes MD - Last Filed: 02/09/24 19:18> Critical Care Time Critical Care Time: No
[2024-02-09 19:05] VITALS: BP 113/67; PULSE 101; O2SAT 95
[2024-02-09] MEDS: SULFA/TRIMETHOPRIM 1 TABLET 1 EACH PO (19:47)
--- NOTE | 2024-02-09 20:06 | PC.NURSE ---
EMS notified of need for transport
[2024-02-09 20:46] VITALS: BP 120/72; PULSE 97; RESP 18; TEMP 36.7; O2SAT 94
== END 2024-02-09 20:47 | disposition home or self-care (01) ==
PROVIDERS: Emergency Provider Emergency Medicine; PCP Nurse Practitioner Family
DX: I82.622 Acute embolism and thrombosis of deep veins of left upper extremity (principal); L03.114 Cellulitis of left upper limb; C91.60 Prolymphocytic leukemia of T-cell type not having achieved remission; Z51.5 Encounter for palliative care
CPT/HCPCS: 99283